=== PATIENT | female | born 1960 | race Caucasian/White ===

== ENCOUNTER → 2017-07-24 11:53 | Outpatient (CLI) | payer OTHER, SELFPAY ==
--- NOTE | 2017-07-24 12:01 | RAD_ITS ---
STUDY: X-RAY CHEST REASON FOR EXAM: Female, 56 years old. Acute bronchitis. TECHNIQUE: Single AP portable view of the chest. COMPARISON: None. FINDINGS: The lungs are clear and expanded. There is no demonstrated pleural abnormality. Normal size heart. Normal mediastinum and ambrosio. Normal visualized pulmonary arteries. Normal visualized aortic arch and descending thoracic aorta. Normal visualized thoracic spine. Normal visualized ribs, clavicles, and shoulders. There is no demonstrated abnormality of the visualized soft tissue structures of the upper abdomen. RAD/Chest PA and Lateral IMPRESSION: Normal x-ray examination of the chest. Electronically Signed: Tadeo Hernandez MD at 18:59 EDT , Service support ,
== END ==
PROVIDERS: Family Provider Family Medicine; PCP Family Medicine; Visit Provider Family Medicine
DX: J20.9 Acute bronchitis, unspecified (principal)
CPT/HCPCS: 71046

== ENCOUNTER → 2017-07-25 07:03 | Outpatient (CLI) | payer OTHER, SELFPAY ==
[2017-07-25 07:08] LABS: Bacteria 0 SEEN /hpf (None Seen); Mucous, Urine 0 SEEN /hpf (<or=2+)
[2017-07-25 10:22] LABS: Absolute Lymphocyte Count 2.82 X10^3/ul (0.83-4.51); Absolute Neutrophil Count 4.6 X10^3/uL (2.0-7.7); Basophil# 0.02 X10^3/uL; Basophil% 0.2 % (0-1); Eosinophils% 1.2 % (0-5); Hematocrit 47.6 % (37-47); Hemoglobin 16.3 g/dl (12.0-15.0); Lymphocyte # 2.82 X10^3/ul (4.0); Lymphocyte % 33.4 % (19-41); Mean Corp Hgb Conc 34.2 g/gl (32-36); Mean Corpuscular Hgb 32.9 pg (27.0-32.0); Mean Platelet Vol. 10.8 fl (6.2-12.0); Monocyte# 0.82 X10^3/uL; Monocyte% 9.7 % (0-10); Neutrophil # 4.63 X10^3/uL (2.7-7.7); Neutrophil % 54.9 % (47-70); Platelet Count 285 K/mm3 (150-450); RBC Distribution Width CV 12.4 % (11.6-14.6); RBC Distribution Width SD 43.1 fl (35.1-43.9); Red Blood Count 4.96 M/mm3 (4.2-5.4); White Blood Count 8.4 K/mm3 (4.4-11.0)
[2017-07-25 10:23] LABS: Color, Urine Yellow (Yellow); Glucose, Dipstick Normal (Normal); Ketone-Dipstick Negative (Negative); Leukocyte Esterase-Dipstick 500 /ul (Negative); Nitrite-Dipstick Negative (Negative); Occult Blood-Urine 10 /ul (Negative); Protein-Dipstick Negative (Negative); Urine Bilirubin Dipstick Negative (Negative); Urine Clarity Sl. Cloudy (Clear); Urine Urobilinogen Normal (Normal); Urine pH 6.5 (5.0 - 8.0)
[2017-07-25 10:24] LABS: POSITIVE COUNT NO; POSITIVE DIFFERENTIAL NO; POSITIVE MORPHOLOGY NO
[2017-07-25 10:35] LABS: Red Blood Cells-Urine 0-5 SEEN /hpf (0-5); Squamous Epithelial Cells - UA 0-5 SEEN /hpf (5-10); White Blood Cells 25-50 SEEN /hpf (0-5)
[2017-07-25 10:45] LABS: ALB/GLOB Ratio 1.1 RATIO (0.9-2.4); AST(SGOT) 16 U/L (15-37); Alanine Aminotransfer ALT/SGPT 26 U/L (13-56); Albumin, Serum 4.1 g/dL (3.2-5.0); Alkaline Phosphatase 82 U/L (45-117); Anion Gap 9 (5-15); BUN 10 mg/dL (7-18); BUN/Creat Ratio 11.9 RATIO (10-20); Calcium,Total 8.9 mg/dL (8.5-10.1); Chloride 98 mmol/L (98-107); Cholesterol 210 mg/dL (200); Creatinine, Serum 0.84 mg/dL (0.55-1.02); EST Glomerular Filtration Rate 75 mL/min (>60); Est Glom Filt Rate - Afr Amer 91 mL/min (>60); Globulin 3.9 g/dL (2.2-4.2); Glucose 77 mg/dL (74-106); High Density Lipoprotein 63 mg/dL; Potassium 3.8 mmol/L (3.5-5.1); Sodium Level 134 mmol/L (136-145); Thyroid Stim Hormone (TSH) 2.71 uIU/mL (0.358-3.74); Triglycerides 130 mg/dL; Very Low Density Lipoprotein 26 mg/dL (5-40)
[2017-07-25 13:56] LABS: Ferritin 105 ng/mL (8-252); Iron 122 ug/dL (50-170); Iron Binding Capacity,Total 364 ug/dL (250-450); PERCENT IRON SATURATION 33.5 % (15.0-55.0)
[2017-07-26 09:11] LABS: Transferrin 297 mg/dL (200-370)
== END ==
PROVIDERS: Family Provider Family Medicine; PCP Family Medicine; Visit Provider Family Medicine
DX: D75.1 Secondary polycythemia (principal); I10 Essential (primary) hypertension
CPT/HCPCS: 80053; 80061; 81001; 82728; 83540; 83550; 84443; 84466; 85025

== ENCOUNTER → 2017-09-20 10:53 | Outpatient (CLI) | payer OTHER, SELFPAY ==
--- NOTE | 2017-09-20 08:48 | ECHOD_ITS ---
Reason For Study: HTN Procedure This was a 2D Doppler, Color Flow transthoracic echocardiogram. Exam performed in department. Left Ventricle Normal size and thickness. The estimated ejection fraction is 65 %. Normal diastology for age. No regional wall motion abnormalities noted. Right Ventricle Normal size and thickness. Normal systolic function. Atria Normal left atrium. Normal right atrium. Normal atrial septum. Mitral Valve The mitral valve is structurally normal. No prolapse or stenosis seen. Tricuspid Valve Normal tricuspid valve. Trivial tricuspid valve insufficiency. Right ventricular systolic pressure estimated to be 35 mmHg. Aortic Valve Trisinus/trileaflet aortic valve. Normal aortic valve. Pulmonic Valve Normal pulmonic valve. Great Vessels Normal aortic root. Normal arch. Normal inferior vena cava. Inferior vena cava collapse with sniff. Pericardium/Pleural No pericardial effusion. MMode/2D Measurements & Calculations LVIDd: 4.1 cm IVSd: 1.00 cm Ao root diam: 3.0 cm LVIDs: 2.7 cm LVPWd: 1.1 cm LA dimension: 3.0 cm RVDd: 2.6 cm FS: 34.1 % LAV(MOD-bp): 44.8 ml LA A4 area: 15.9 cm2 RA A4 area: 11.1 cm2 LAV(MOD-bp) Indexed: 29.1 ml/m2 LAV(MOD-sp2): 45.4 ml LAV(MOD-sp4): 43.9 ml Doppler Measurements & Calculations MV E max sky: 98.0 cm/sec Lat Peak E' Sky: 9.7 cm/sec Med Peak E' Sky: 9.4 cm/sec MV A max sky: 88.8 cm/sec E/E' lat: 10.1 E/E' med: 10.4 MV E/A: 1.1 Ao V2 max: 128.5 cm/sec LV V1 max: 93.5 cm/sec PA V2 max: 154.0 cm/sec Ao max P.6 mmHg LV V1 max P.5 mmHg TR max sky: 270.8 cm/sec TR max P.5 mmHg Interpretation Summary The estimated ejection fraction is 65 %. Normal diastology for age. Trivial tricuspid valve insufficiency. Right ventricular systolic pressure estimated to be 35 mmHg. There is no comparison study available. Ordering Physician: Brett Velazquez Performed By: Beatris Lauren, FIOR, RVT
--- NOTE | 2017-09-20 10:53 | DT_ITS ---
This patient was seen during an EMR downtime September 17, 2017 - September 24, 2017. This patient may have a combination of paper and electronic documentation or all paper documentation. All documentation is viewable within the e-chart portion of [employer] for each patient visit.
== END ==
PROVIDERS: Family Provider Family Medicine; PCP Family Medicine; Visit Provider Family Medicine
DX: I10 Essential (primary) hypertension (principal)
CPT/HCPCS: 93306

== ENCOUNTER → 2019-05-21 10:13 | Outpatient (CLI) | payer OTHER, SELFPAY ==
--- NOTE | 2019-05-21 10:17 | RAD_ITS ---
STUDY: X-RAY CHEST REASON FOR EXAM: Female, 58 years old. cough x 1 week TECHNIQUE: PA and lateral views of the chest. COMPARISON: 07/24/2017 FINDINGS: The lungs are clear and expanded. There is no demonstrated pleural abnormality. Normal size heart. Normal mediastinum and ambrosio. Normal visualized pulmonary arteries. Normal visualized aortic arch and descending thoracic aorta. Normal visualized thoracic spine. Normal visualized ribs, clavicles, and shoulders. There is no demonstrated abnormality of the visualized soft tissue structures of the upper abdomen. RAD/Chest PA and Lateral IMPRESSION: Normal x-ray examination of the chest. Electronically Signed: Dmitriy Quiñonez MD at 12:59 EST Tel , Service support ,
== END ==
PROVIDERS: PCP Family Medicine; Referring Provider Nurse Practitioner Adult Health; Visit Provider Nurse Practitioner Adult Health
DX: R05 Cough (principal)
CPT/HCPCS: 71046

== ENCOUNTER → 2021-03-21 17:03 | Outpatient (CLI) | payer OTHER, SELFPAY | PROVIDERS: PCP Family Medicine; Referring Provider Family Medicine; Visit Provider Family Medicine | DX: Z20.822 Contact with and (suspected) exposure to COVID-19 (principal) | CPT/HCPCS: 87635; U0005; U0003 ==

== ENCOUNTER 2021-05-26 10:16 | Outpatient (CLI) | payer OTHER, SELFPAY | END 2021-05-26 23:59 | disposition home or self-care (01) | PROVIDERS: PCP Family Medicine; Referring Provider Family Medicine; Visit Provider Family Medicine | DX: R30.0 Dysuria (principal) | CPT/HCPCS: 87077; 87086; 87088; 87186 ==

== ENCOUNTER 2021-07-20 08:46 | Outpatient (CLI) | payer OTHER, SELFPAY ==
[2021-07-20 10:20] LABS: Anion Gap 5 (5-15); BUN 9 mg/dL (7-18); Calcium,Total 8.9 mg/dL (8.5-10.1); Chloride 94 mmol/L (98-107); Cholesterol 202 mg/dL (200); Creatinine, Serum 0.75 mg/dL (0.55-1.02); EST Glomerular Filtration Rate 84 mL/min (>60); Est Glom Filt Rate - Afr Amer 101 mL/min (>60); Glucose 105 mg/dL (74-106); High Density Lipoprotein 58 mg/dL; Sodium Level 125 mmol/L (136-145); Triglycerides 121 mg/dL; Very Low Density Lipoprotein 24 mg/dL (5-40)
== END 2021-07-20 23:59 | disposition home or self-care (01) ==
LOC: MFPLAB 08:48
PROVIDERS: PCP Family Medicine; Referring Provider Family Medicine; Visit Provider Family Medicine
DX: I10 Essential (primary) hypertension (principal)
CPT/HCPCS: 36415; 80048; 80061

== ENCOUNTER 2022-04-19 12:06 | Emergency (ER) | payer OTHER, SELFPAY ==
[2022-04-19 12:11] VITALS: BP 219/108; PULSE 66; RESP 10; TEMP 36.3; O2SAT 99; BMI 23.1
[2022-04-19 12:14] VITALS: PULSE 64; RESP 14; O2SAT 98
[2022-04-19 12:16] VITALS: BP 216/101; PULSE 63
--- NOTE | 2022-04-19 12:25 | EKG12_ITS ---
Test Reason : HYPERTENSION Blood Pressure : / mmHG Vent. Rate : 065 BPM Atrial Rate : 065 BPM P-R Int : 124 ms QRS Dur : 084 ms QT Int : 406 ms P-R-T Axes : 075 058 063 degrees QTc Int : 422 ms Normal sinus rhythm Possible Left atrial enlargement Borderline ECG Confirmed by JENNIFER STEEN, ISABELLA ([id number]), editorial director CHRIS CONSTANTINO ([id number]) on 04/21/2022 6:31:42 AM Referred By: SHAYLA Confirmed By:GURVINDER RODRIGUEZ MD
--- NOTE | 2022-04-19 12:53 | EDS_ITS ---
HPI History of Present Illness Chief Complaint: Hypertension Detail of Chief Complaint: Vertigo Informant: patient Onset/Context/Timing Onset: Today Current Severity: Mild Maximum Severity: Mild Narrative Narrative: 61-year-old female history of hypertension and vertigo. She takes metoprolol 1 pill twice a day for hypertension. Took it this morning. States that she has had worsening dizziness today. Mild frontal headache. Consistent with her prior vertigo. She denies any visual changes. No weakness or of her arms or legs. No falls or head trauma. She is on no blood thinners. Denies any nausea, vomiting or diarrhea. No fever or chills. No chest or abdominal pain. She has had symptoms like this before. Prior similar symptoms: Yes Recent Illness/Hospitalization: No PFSH PFSH Medical History Hypertension Home Medications meclizine 25 mg chewable tablet (Antivert) 25 mg PO TID #20 tabs 04/19/22 [Rx Last Taken Unknown] metoprolol tartrate 50 mg tablet 50 mg PO BID 04/19/22 [History Last Taken Unknown] Allergy/AdvReac Type Severity Reaction Status Date / Time Penicillins Allergy Itching Verified 04/19/22 12:07 Social History Smoking Status: Current every day smoker tobacco type: cigarettes ROS ROS ED ROS Narrative Dizziness. Review of Systems ROS Unobtainable: Denies due to encephalopathy Constitutional Constitutional ED: Denies chills or fever(s) Eyes Eyes: Denies blurry vision ENT ENT ED: Denies ear pain Cardiovascular Cardiovascular: Denies chest pain Respiratory/Chest Respiratory/Chest: Denies cough Gastrointestinal Gastrointestinal: Denies abdominal pain, nausea or vomiting Genitourinary Genitourinary ED: Denies dysuria or hematuria Integumentary Denies abscess Neurologic Neurologic: Reports headache(s) Psychiatric Psychiatric: Denies anxiety Endocrine Endocrinology: Denies cold intolerance Hematologic/Lymphatic Hematologic/Lymphatic: Reports none Allergic/Immunologic Allergic/Immunologic ED: Denies mouth swelling or tongue swelling EXAM Physical Exam Narrative Exam Narrative: 61-year-old female no acute distress. Initial blood pressure was elevated 219/108. While I am in the room it was 202/400. Prior to being given anything. She is in no distress. Significant other bedside. H EENT exam unremarkable.. Heart regular light extra motions are intact. No facial droop. Normal speech. No trauma. Neck nontender no meningismus. Lungs clear to auscultation bilaterally. Heart regular rhythm no murmur rate about 60. Chest wall nontender. Abdomen soft nontender. Moving all 4 extremities. 5 out of 5 stogy maker strength. Dorsi plantar flexion intact. Neurologic exam normal NIH is 0. She does have a positive Hallpike when laying flat in bed turning her head from the left to the right right to the left and sit her up she gets room spinning dizziness. Her ear canals are obstructed bilaterally with wax. There are no focal motor deficits. Fingertip denies any admission within normal limits. NIH is 0. Const Vital Signs: 04/19/22 12:11 04/19/22 12:14 04/19/22 12:14 Temperature 97.3 F L Temperature Source Temporal Pulse Rate 66 64 Respiratory Rate 10 L 14 Respiratory Effort Normal Non-Labored Blood Pressure 219/108 H Blood Pressure Mean 145 Pulse Ox 99 98 Oxygen Delivery Method Room Air Room Air 04/19/22 12:16 04/19/22 13:30 04/19/22 14:23 Temperature Temperature Source Pulse Rate 63 64 62 Respiratory Rate 19 H 11 L Respiratory Effort Blood Pressure 216/101 H 174/93 H 152/80 H Blood Pressure Mean 139 120 104 Pulse Ox 97 97 Oxygen Delivery Method Room Air Room Air Positive well nourished, well developed and unkempt; Negative for obese, cachectic or contractures General Appearance ED: unkempt, well developed and NAD; Negative for cachectic, contractures, cyanotic, diaphoretic or pallor Nutritional Appearance: Negative for cachectic or obese HEENT Reports moist mucous membranes; Denies TM's clear or dry mucous membranes HEENT Narrative: Ears obstructed by wax bilaterally. Negative for trauma or tenderness Tympanic Membrane ED: Negative for TM's clear Mouth ED: No dry mucous membranes Mouth: No dry mucous membranes Eyes PERRL and EOMs intact bilaterally General Eye ED: Negative for pale conjunctiva or scleral icterus Neck no lymphadenopathy, supple and no JVD General: Negative for tenderness Lymph Lymphatic: Negative for other Chest Wall inspection of chest normal and palpation of chest normal Chest: Negative for other Resp normal respiratory effort and clear to auscultation bilaterally Effort and Inspection: Negative for retractions Auscultation: Negative for rales, rhonchi or wheezes Cardio regular rate, regular rhythm, S1 normal heart sound, S2 normal heart sound and no murmurs Palpation: Negative for palpable S3 Rate: Negative for bradycardia Rhythm: Negative for abnormal rhythm GI normal to inspection, nondistended, normoactive bowel sounds, non-tender, non- distended and no masses Inspection: Negative for abdominal distention Auscultation: normoactive bowel sounds Palpation: soft; Negative for tender or guarding Back/Spine no CVA tenderness General Back: Negative for CVA tenderness Cervical Spine: Negative for cervical spine tenderness Thoracic Spine / Upper Back: Negative for thoracic spinal tenderness Lumbar Spine / Lower Back: Negative for lumbar spinal tenderness Extremity normal to inspection General Extremety ED: Negative for edema or tenderness General Extremity: Negative for edema Neuro oriented x3, CN's II-XII intact bilaterally and no sensory deficits noted Neuro Narrative: Neurologic exam normal. Positive Hallpike maneuver. NIH 0. Normal strength. No motor loss. No sensory loss. Sensorium / Orientation: alert; Negative for orientation impaired, lethargic or stuporous Sensory Exam: No sensory level loss detected Motor Exam: Negative for strength 5/5 throughout, general weakness or strength abnormal Psych mental status grossly normal Appearance: unkempt Attitude: No agitated Mood & Affect: Negative for depressed or anxious Skin no rashes or lesions noted, no wounds and skin turgor normal General Skin Exam: Negative for elasticity normal, jaundice or pallor Lesions: No lesion noted Rashes: No rashes noted Trauma: Negative for abrasion Wounds: Negative for wounds noted MDM MDM MDM Narrative Medical decision making narrative: 61-year-old with vertigo. She also has elevated blood pressure. Unable to get her vertigo symptoms better the blood pressure will improve. I do not think she needs any imaging she has a normal neurologic exam. Positive Hallpike maneuver. She will be treated with Valium for the vertigo. We will irrigate her ears to try to relieve the wax to see if it helps her symptoms also and will monitor her blood pressure. Nursing protocol did an EKG which is unremarkable. Repeat exam patient is doing well at 3:10 PM. Nurses irrigate get some wax out of her ear still Amount she would not tolerate me trying to remove the wax with the cerumen spoon or irrigated any further she will be referred to follow-up with ENT and discharged to use Debrox or Cerumenex for her earwax. She has felt better with the Valium for vertigo. She will be discharged to home on Antivert. Neurologic exam remains normal. Her blood pressures been improving as her symptoms improve her current blood pressure is 152/80. Rhythm Strip Rhythm Strip: Sinus Rhythm Rate: 65 Ectopy: None EKG Initial EKG: Attestation: I personally reviewed and interpreted this EKG as follows: Interpretation: Sinus Rhythm and No Acute Injury Pattern Comments: Normal sinus rhythm rate of 65 no acute signs of HI or ischemia. Discharge Plan Triage Chief Complaint: Hypertension Other Complaint: Headache ED Provider: Rich Treadwell Dx/Rx/DC Orders Clinical Impression: Vertigo, Chronic hypertension, Impacted cerumen Instructions: Impacted Earwax, ED Vertigo, Unspecified Prescriptions: New meclizine [Antivert] 25 mg tablet,chewable 25 mg PO TID Qty: 20 0RF No Action metoprolol tartrate 50 mg tablet 50 mg PO BID Primary Care Provider: Brett Velazquez Referrals: Brett Velazquez MD [Primary Care Provider] - 3-5 Days if not improving Activity Restrictions/Additional Instructions: Watch her [id number] Debrox or Cerumenex 2 drops in each ear twice a day help get rid of the earwax. If its not improving you need to follow-up across the street with the ear nose and throat Dr. Charanjit Shafer to have the wax cleaned out of your ears. Antivert as needed and prescribed for your vertigo. Return if feeling worse. Take your blood pressure medications as prescribed. Pressures daily if you have a blood pressure machine at home. Disposition Disposition: Home, Self Care
[2022-04-19] MEDS: diazePAM 5 MG Tablet PO (13:24)
[2022-04-19 13:30] VITALS: BP 174/93; PULSE 64; RESP 19; O2SAT 97
[2022-04-19] MEDS: Carbamide Peroxide 15 ML Bottle 5 DRP OTIC (13:42)
[2022-04-19 14:23] VITALS: BP 152/80; PULSE 62; RESP 11; O2SAT 97
[2022-04-19 15:30] VITALS: BP 174/83; PULSE 71
== END 2022-04-19 15:31 | disposition home or self-care (01) ==
PROVIDERS: Emergency Provider Emergency Medicine; PCP Family Medicine; Visit Provider Emergency Medicine
DX: R42 Dizziness and giddiness (principal); R51.9 Headache, unspecified; I10 Essential (primary) hypertension; F17.210 Nicotine dependence, cigarettes, uncomplicated; H61.20 Impacted cerumen, unspecified ear
CPT/HCPCS: 93005; 99285

== ENCOUNTER 2023-05-25 05:45 | Emergency (ER) | payer OTHER, SELFPAY ==
[2023-05-25 05:45] VITALS: BP 221/107; PULSE 105; RESP 19; TEMP 36.2; O2SAT 97; BMI 22.0
--- NOTE | 2023-05-25 06:16 | CT_ITS ---
INDICATION: Paresthesias EXAMINATION: CTA Head WO/W Contrast Injection TECHNIQUE: Routine CTA of the head was performed with post processing of the angiographic images for volumetric reconstructionsNascet criteria using the distal ICAs for comparison were used for evaluation of stenoses. 3D reconstructions were reviewed. A radiation dose optimization technique was used for this scan. IV Contrast dosage and agent: 100 mL [id number]-370 COMPARISON: None. FINDINGS: --Noncontrast CT head: No intracranial hemorrhage, mass, or focal mass effect. Pacheco-white matter differentiation is preserved. Mild periventricular hypodense chronic small vessel white matter ischemic change. Minimal ethmoid sinus mucoperiosteal thickening. Unremarkable orbits. Mastoid air cells are clear. Bilateral carotid atherosclerosis. --HEAD: --Anterior circulation: ICAs: No significant stenosis at the intracranial/visualized segments. ACAs: No significant stenosis at the visualized segments. ACOM: Present. MCAs: No significant stenosis at the visualized segments. --Posterior circulation: PCOMs: Intact on the left. Not seen on the right. aluminum pool installer: No significant stenosis at the visualized segments. BASILAR ARTERY: No significant stenosis. VERTEBRAL ARTERIES: No significant stenosis at the intradural/visualized segments. No evidence of intracranial aneurysm or vascular malformation. CT/CTA Head W/WO Contrast IMPRESSION: No evidence of acute intracranial hemorrhage or injury. Mild senescent changes compatible with age. No evidence of proximal intracranial vascular occlusion or aneurysmal dilatation. Bilateral carotid atherosclerosis. Minimal ethmoid sinus disease. Electronically Signed: Malachi García MD at 8:23 EST ,
[2023-05-25 06:36] LABS: Absolute Lymphocyte Count 1.46 X10^3/uL (0.83-4.51); Absolute Neutrophil Count 2.9 X10^3/uL (2.0-7.7); Basophil# 0.02 X10^3/uL; Basophil% 0.4 % (0-1); Eosinophil# 0.04 X10^3/uL; Eosinophils% 0.8 % (0-5); Hematocrit 43.6 % (37-47); Hemoglobin 15.2 g/dL (12.0-15.0); Lymphocyte # 1.46 X10^3/ul (0.83-4.51); Lymphocyte % 29.7 % (19-41); Mean Corp Hgb Conc 34.9 g/dL (32-36); Mean Corpuscular Hgb 31.5 pg (27.0-32.0); Mean Corpuscular Volume 90.5 fL (81-99); Mean Platelet Vol. 9.5 fl (6.2-12.0); Monocyte% 10.2 % (0-10); NRBC Flagged by Analyzer 0 % (0-5); Neutrophil # 2.87 X10^3/uL (2.7-7.7); Neutrophil % 58.5 % (47-70); Platelet Count 259 K/mm3 (150-450); RBC Distribution Width CV 11.9 % (11.6-14.6); RBC Distribution Width SD 38.9 fl (35.1-43.9); Red Blood Count 4.82 M/mm3 (4.2-5.4); White Blood Count 4.9 K/mm3 (4.4-11.0)
[2023-05-25 06:49] LABS: International Normalized Ratio 0.9; Partial Thromboplast Time 32.7 Seconds (24.1-36.2); Prothrombin Time (Protime)PT. 12.3 SECONDS (11.7-14.9)
[2023-05-25] MEDS: cloNIDine HCl 0.2 MG Tablet 0.200000000000000011 MG PO (06:54)
[2023-05-25] MEDS: Labetalol (Prefilled) 20 MG/4 ML 10 MG IV (06:54)
[2023-05-25 06:56] VITALS: BP 187/88
[2023-05-25 07:03] LABS: Anion Gap 7 (5-15); BUN 7 mg/dL (7-18); BUN/Creat Ratio 10.3 RATIO (10-20); Calcium,Total 8.9 mg/dL (8.5-10.1); Chloride 97 mmol/L (98-107); Creatinine, Serum 0.68 mg/dL (0.55-1.02); EST Glomerular Filtration Rate 94 mL/min (>60); Est Glom Filt Rate - Afr Amer 113 mL/min (>60); Estimated Creatinine Clearance 68.71 ml/min; Glucose 107 mg/dL (74-106); Magnesium 1.8 mg/dL (1.6-2.6); Potassium 4.5 mmol/L (3.5-5.1); Sodium Level 130 mmol/L (136-145); Thyroid Stim Hormone (TSH) 1.37 uIU/mL (0.358-3.74); Troponin-I HS 5 pg/mL (3.0-54.0)
--- NOTE | 2023-05-25 09:20 | EX.ED.DYSGE1 ---
HPI History of Present Illness Chief Complaint: Numb/Ting Informant: patient and spouse/S.O. Narrative Narrative: Patient is a 62-year-old female with past medical history of hypertension. She states that she awoke from sleep this morning around 3:00 in the morning with a sensation of numbness and tingling to the left side of her body. She states she stayed at home hoping the symptoms resolved but they have not done so and therefore she comes in for evaluation. She denies any headache or recent head trauma she denies any sick symptoms she denies any chest pain or shortness of breath and she denies any change in vision [facility] Medical History Hypertension Home Medications meclizine 25 mg chewable tablet (Antivert) 25 mg PO TID #20 tabs 04/19/22 [Rx Last Taken Unknown] metoprolol tartrate 50 mg tablet 50 mg PO BID 04/19/22 [History Last Taken Unknown] Allergy/AdvReac Type Severity Reaction Status Date / Time Penicillins Allergy Itching Verified 05/25/23 05:46 Social History Smoking Status: Current every day smoker tobacco type: cigarettes ROS ROS ED Constitutional Constitutional ED: Denies chills or fever(s) Eyes Eyes: Denies blurry vision, change in vision or diplopia ENT ENT ED: Denies sore throat Cardiovascular Cardiovascular: Denies chest pain, palpitations or racing heartbeat Respiratory/Chest Respiratory/Chest: Denies cough or dyspnea Gastrointestinal Gastrointestinal: Denies abdominal pain, diarrhea, nausea or vomiting Genitourinary Genitourinary ED: Denies dysuria or hematuria Musculoskeletal Musculoskeletal: Denies myalgias Integumentary Denies rash Neurologic Neurologic: Reports paresthesias; Denies headache(s) Hematologic/Lymphatic Hematologic/Lymphatic: Denies easy bleeding or easy bruising EXAM Physical Exam Const Vital Signs: 05/25/23 05:45 05/25/23 06:56 Temperature 97.2 F L Temperature Source Temporal Pulse Rate 105 H Respiratory Rate 19 H Blood Pressure 221/107 H 187/88 H Blood Pressure Mean 145 121 Pulse Ox 97 Oxygen Delivery Method Room Air Positive well nourished and well developed General Appearance ED: well developed; Negative for pallor HEENT HEENT Narrative: Normocephalic atraumatic No tongue or lip swelling no oral lesions no airway edema or compromise No signs of infection in the posterior pharynx Eyes PERRL and EOMs intact bilaterally General Eye ED: Negative for scleral icterus Neck supple Neck Narrative: No nuchal rigidity or meningeal signs noted Chest Wall palpation of chest normal Resp normal respiratory effort and clear to auscultation bilaterally Cardio regular rate and regular rhythm Rate: other Other Details: Heart is regular rate and rhythm without murmurs rubs or gallops Radial and carotid pulses are equal and symmetric GI normal to inspection, nondistended, normoactive bowel sounds, non-tender, non-distended and no masses GI Narrative: No voluntary guarding or rigidity No pulsatile mass or fluid wave Auscultation: normoactive bowel sounds Palpation: soft Extremity normal to inspection Extremity Narrative: No asymmetric edema no pitting edema negative Homans' sign bilaterally Negative Spurling sign bilaterally Neuro oriented x3 and CN's II-XII intact bilaterally Neuro Narrative: Patient is awake alert and oriented to person place and time. No pronator drift no dysmetria no truncal ataxia No asymmetric strength to the upper or lower extremities Patient reports paresthesias in the left arm and left leg but when she is stressed with differentiating between soft and sharp sensation in both the left arm and left leg in multiple dermatomes she can do so without difficulty. Secondary to this I greater NIH stroke scale score as 0 Sensorium / Orientation: alert Psych Psych Narrative: Patient has a flat affect Skin no rashes or lesions noted and no wounds General Skin Exam: Negative for jaundice or pallor MDM MDM MDM Narrative Medical decision making narrative: Patient arrived to the hospital hypertensive and slightly tachycardic but otherwise with stable vitals. She reported paresthesias to the left arm and left leg but was able to ambulate without difficulty did not have any type of focal weakness and when she was stressed between differentiating with soft and sharp sensation she could do so without issue. Therefore I felt there is no need to activate a stroke alert. However because of her paresthesias and hypertension I felt this was hypertensive urgency. Basic blood work was obtained I did elect to still perform a CT and CTA of the head in order to rule out spontaneous bleed such as subarachnoid hemorrhage or potential small vessel occlusion/ischemia. Basic blood work was also ordered to rule out acute kidney injury or electrolyte derangement. Lab work revealed no clinically significant findings and CT revealed no acute bleed or mass or signs of ischemia. Patient was medicated and her blood pressure improved. On reevaluation her neuro exam remains normal and she can still differentiate between soft and sharp sensation but she states that there is been fluctuating paresthesias to the left side. Secondary to this I discussed with patient about admission to the hospital for observation where she could potentially have a teleneurology consult and undergo MRI and carotid ultrasound. The patient states that as her lab work is normal and her CTA does not reveal signs of blockage she does not want to stay in the hospital and wishes to be discharged. The patient's stroke scale score is 0 she is awake alert and oriented with stable vitals and therefore she is competent to make this decision. She was ambulated and can do so with a steady gait prior to discharge as well. Therefore she will be discharged at this time as she requests and she will follow-up with her family doctor for potential neurology consult and/or outpatient testing to further assess the cause of her paresthesias History & Record Review Discussion w/independent historian: Patient and Significant other Lab Data Attestation: I reviewed the patient's lab results. Labs: Laboratory Results - last 24 hr 05/25/23 06:25 WBC 4.9 RBC 4.82 Hgb 15.2 H Hct 43.6 MCV 90.5 MCH 31.5 MCHC 34.9 RDW Std Deviation 38.9 RDW Coeff of Jason 11.9 Plt Count 259 MPV 9.5 Immature Gran % (Auto) 0.400 Neut % (Auto) 58.5 Lymph % (Auto) 29.7 Burt % (Auto) 10.2 H Eos % (Auto) 0.8 Baso % (Auto) 0.4 Absolute Neuts (auto) 2.9 Absolute Lymphs (auto) 1.46 Nucleated RBC % 0 PT 12.3 INR 0.9 APTT 32.7 Sodium 130 L Potassium 4.5 Chloride 97 L Carbon Dioxide 26.0 Anion Gap 7 BUN 7 Creatinine 0.68 Estim Creat Clear Calc 68.71 Est GFR (MDRD) Af Amer 113 Est GFR (MDRD) Non-Af 94 BUN/Creatinine Ratio 10.3 Glucose 107 H Calcium 8.9 Magnesium 1.8 Troponin I High Sens 5 TSH 1.37 Radiography Diagnostic Testing: Clinical Impression(s) from Imaging Studies Head CTA 05/25/23 06:16 IMPRESSION: No evidence of acute intracranial hemorrhage or injury. Mild senescent changes compatible with age. No evidence of proximal intracranial vascular occlusion or aneurysmal dilatation. Bilateral carotid atherosclerosis. Minimal ethmoid sinus disease. Electronically Signed: Malachi García MD at 8:23 EST Reading Location ID and State: [facility] / [place] Tel , Service support , Discharge Plan Triage Chief Complaint: Numb/Ting ED Provider: Silvestre Quan Dx/Rx/DC Orders Clinical Impression: Paresthesias, Hypertension Instructions: Hypertension Dc, ED Paraesthesias Prescriptions: No Action metoprolol tartrate 50 mg tablet 50 mg PO BID meclizine [Antivert] 25 mg tablet,chewable 25 mg PO TID Qty: 20 0RF Primary Care Provider: Brett Velazquez Referrals: Brett Velazquez MD [Primary Care Provider] - Reynaldo Garcia MD [Non-Staff -Ordering Privileges] - Activity Restrictions/Additional Instructions: Your CT scan of your brain revealed no signs of blockage or stroke. Secondary to your recurrent paresthesias may need further workup such as an MRI of your head or spine and therefore follow-up with your family doctor and/or neurology to discuss this. As you were given blood pressure medication in the ER did not take your normal blood pressure medication today. If you have any further concerns please return for repeat evaluation Disposition Disposition: Home, Self Care Discharge Date/Time: 05/25/23 10:15
[2023-05-25 10:14] VITALS: BP 108/66; PULSE 68; RESP 16; O2SAT 98
== END 2023-05-25 10:15 | disposition home or self-care (01) ==
PROVIDERS: Emergency Provider Emergency Medicine; PCP Family Medicine; Visit Provider Emergency Medicine
DX: R20.2 Paresthesia of skin (principal); I10 Essential (primary) hypertension; F17.210 Nicotine dependence, cigarettes, uncomplicated
CPT/HCPCS: 70496; 80048; 83735; 84443; 84484; 85025; 85610; 85730; 93005; 99282; A4216

== ENCOUNTER → 2023-10-11 | Outpatient (CLI) | payer OTHER, SELFPAY ==
[2023-10-11 18:50] LABS: Anion Gap 10 (5-15); BUN 13 mg/dL (7-18); BUN/Creat Ratio 16.1 RATIO (10-20); Calcium,Total 8.7 mg/dL (8.5-10.1); Chloride 92 mmol/L (98-107); Cholesterol 206 mg/dL (200); EST Glomerular Filtration Rate 77 mL/min (>60); Est Glom Filt Rate - Afr Amer 93 mL/min (>60); Glucose 102 mg/dL (74-106); High Density Lipoprotein 43 mg/dL; Potassium 3.8 mmol/L (3.5-5.1); Sodium Level 126 mmol/L (136-145); Triglycerides 410 mg/dL
== END | disposition home or self-care (01) ==
LOC: MFPLAB 15:19
PROVIDERS: PCP Family Medicine; Visit Provider Family Medicine
DX: I10 Essential (primary) hypertension (principal)
CPT/HCPCS: 36415; 80048; 80061

== ENCOUNTER → 2023-10-19 | Outpatient (CLI) | payer OTHER, SELFPAY ==
[2023-10-19 10:56] LABS: Anion Gap 9 (5-15); BUN 11 mg/dL (7-18); BUN/Creat Ratio 15.4 RATIO (10-20); Calcium,Total 9.2 mg/dL (8.5-10.1); Chloride 94 mmol/L (98-107); Creatinine, Serum 0.72 mg/dL (0.55-1.02); EST Glomerular Filtration Rate 88 mL/min (>60); Est Glom Filt Rate - Afr Amer 106 mL/min (>60); Glucose 99 mg/dL (74-106); Potassium 4.4 mmol/L (3.5-5.1); Sodium Level 127 mmol/L (136-145)
== END | disposition home or self-care (01) ==
LOC: MTLAB 08:14
PROVIDERS: PCP Family Medicine; Referring Provider Family Medicine; Visit Provider Family Medicine
DX: D75.1 Secondary polycythemia (principal)
CPT/HCPCS: 36415; 80048

== ENCOUNTER → 2024-08-14 | Outpatient (CLI) | payer OTHER, SELFPAY ==
--- NOTE | 2024-08-14 12:33 | RAD_ITS ---
PROCEDURE: CHEST PA AND LATERAL 08/14/2024 REASON FOR EXAM: PNEUMONIA TECHNIQUE: Frontal and lateral views of the chest. COMPARISON: 05/21/2019 FINDINGS: The lungs are clear. Pulmonary vascularity appears within limits. No pleural effusion. The cardiac and mediastinal contours appear within limits. Atherosclerotic change at the aortic arch noted. Visualized osseous structures appear within limits. Possible bilateral carotid calcification. RAD/Chest PA and Lateral IMPRESSION: No evidence of acute disease. Reading Location: [id number]
[2024-08-14 15:20] LABS: Absolute Lymphocyte Count 1.84 X10^3/uL (0.83-4.51); Absolute Neutrophil Count 2.7 X10^3/uL (2.0-7.7); Basophil# 0.02 X10^3/uL; Basophil% 0.4 % (0-1); Eosinophil# 0.05 X10^3/uL; Hematocrit 44.2 % (37-47); Hemoglobin 15.7 g/dL (12.0-15.0); Lymphocyte # 1.84 X10^3/ul (0.83-4.51); Lymphocyte % 35.1 % (19-41); Mean Corp Hgb Conc 35.5 g/dL (32-36); Mean Corpuscular Hgb 32.9 pg (27.0-32.0); Mean Corpuscular Volume 92.7 fL (81-99); Mean Platelet Vol. 10.2 fl (6.2-12.0); Monocyte# 0.57 X10^3/uL; Monocyte% 10.9 % (0-10); NRBC Flagged by Analyzer 0 % (0-5); Neutrophil # 2.74 X10^3/uL (2.7-7.7); Neutrophil % 52.2 % (47-70); Platelet Count 249 K/mm3 (150-450); RBC Distribution Width CV 11.7 % (11.6-14.6); RBC Distribution Width SD 39.9 fl (35.1-43.9); Red Blood Count 4.77 M/mm3 (4.2-5.4); White Blood Count 5.2 K/mm3 (4.4-11.0)
[2024-08-14 16:11] LABS: Anion Gap 12 (5-15); BUN 8 mg/dL (4-19); BUN/Creat Ratio 12.3 RATIO (10-20); Calcium,Total 9.1 mg/dL (7.6-11.0); Carbon Dioxide 22.6 mmol/L (21.0-32.0); Chloride 91 mmol/L (98-108); Creatinine, Serum 0.62 mg/dL (0.70-1.20); EST Glomerular Filtration Rate 101 (>60); Glucose 106 mg/dL (70-99); Potassium 4.7 mmol/L (3.3-5.1); Sodium Level 125 mmol/L (133-145)
== END | disposition home or self-care (01) ==
LOC: MTRAD 12:32
PROVIDERS: PCP Family Medicine; Referring Provider Family Medicine; Visit Provider Family Medicine
DX: J18.9 Pneumonia, unspecified organism (principal)
CPT/HCPCS: 36415; 71046; 80048; 85025

== ENCOUNTER → 2024-08-15 | Outpatient (CLI) | payer OTHER, SELFPAY ==
[2024-08-15 10:50] LABS: Absolute Lymphocyte Count 1.98 X10^3/uL (0.83-4.51); Absolute Neutrophil Count 3.8 X10^3/uL (2.0-7.7); Basophil# 0.01 X10^3/uL; Basophil% 0.2 % (0-1); Eosinophil# 0.03 X10^3/uL; Eosinophils% 0.5 % (0-5); Hematocrit 42.4 % (37-47); Hemoglobin 14.9 g/dL (12.0-15.0); Lymphocyte # 1.98 X10^3/ul (0.83-4.51); Lymphocyte % 30.8 % (19-41); Mean Corp Hgb Conc 35.1 g/dL (32-36); Mean Platelet Vol. 10.4 fl (6.2-12.0); Monocyte% 9.3 % (0-10); NRBC Flagged by Analyzer 0 % (0-5); Neutrophil # 3.77 X10^3/uL (2.7-7.7); Neutrophil % 58.7 % (47-70); Platelet Count 236 K/mm3 (150-450); RBC Distribution Width CV 11.8 % (11.6-14.6); Red Blood Count 4.51 M/mm3 (4.2-5.4); White Blood Count 6.4 K/mm3 (4.4-11.0)
[2024-08-15 11:04] LABS: Anion Gap 13 (5-15); BUN 7 mg/dL (4-19); BUN/Creat Ratio 9.1 RATIO (10-20); Carbon Dioxide 22.9 mmol/L (21.0-32.0); Chloride 91 mmol/L (98-108); Creatinine, Serum 0.75 mg/dL (0.70-1.20); EST Glomerular Filtration Rate 90 (>60); Glucose 105 mg/dL (70-99); Potassium 4.1 mmol/L (3.3-5.1); Sodium Level 126 mmol/L (133-145)
== END | disposition home or self-care (01) ==
LOC: MTLAB 07:37
PROVIDERS: PCP Family Medicine; Referring Provider Family Medicine; Visit Provider Family Medicine
DX: J18.9 Pneumonia, unspecified organism (principal)
CPT/HCPCS: 36415; 80048; 85025

== ENCOUNTER → 2024-08-22 | Outpatient (CLI) | payer OTHER, SELFPAY ==
[2024-08-22 15:56] LABS: Absolute Neutrophil Count 6.5 X10^3/uL (2.0-7.7); Basophil# 0.04 X10^3/uL; Basophil% 0.4 % (0-1); Eosinophil# 0.18 X10^3/uL; Eosinophils% 1.8 % (0-5); Lymphocyte % 26.3 % (19-41); Mean Corp Hgb Conc 35.7 g/dL (32-36); Mean Corpuscular Hgb 32.9 pg (27.0-32.0); Mean Corpuscular Volume 92.1 fL (81-99); Mean Platelet Vol. 10.4 fl (6.2-12.0); Monocyte# 0.77 X10^3/uL; Monocyte% 7.5 % (0-10); NRBC Flagged by Analyzer 0 % (0-5); Neutrophil % 63.2 % (47-70); Platelet Count 285 K/mm3 (150-450); RBC Distribution Width CV 11.4 % (11.6-14.6); RBC Distribution Width SD 38.7 fl (35.1-43.9); Red Blood Count 4.56 M/mm3 (4.2-5.4); White Blood Count 10.3 K/mm3 (4.4-11.0)
[2024-08-22 17:14] LABS: Anion Gap 12 (5-15); BUN 11 mg/dL (4-19); BUN/Creat Ratio 14.7 RATIO (10-20); Calcium,Total 9.4 mg/dL (7.6-11.0); Carbon Dioxide 22.3 mmol/L (21.0-32.0); Chloride 97 mmol/L (98-108); Creatinine, Serum 0.77 mg/dL (0.70-1.20); EST Glomerular Filtration Rate 87 (>60); Glucose 105 mg/dL (70-99); Potassium 4.3 mmol/L (3.3-5.1); Sodium Level 132 mmol/L (133-145)
== END | disposition home or self-care (01) ==
PROVIDERS: PCP Family Medicine; Referring Provider Family Medicine; Visit Provider Family Medicine
DX: I16.0 Hypertensive urgency (principal); E87.1 Hypo-osmolality and hyponatremia
CPT/HCPCS: 36415; 80048; 82570; 85025